=== PATIENT | female | born 1995 | race Caucasian/White ===

== ENCOUNTER 2024-09-09 13:42 | Inpatient (IN) | payer OTHER ==
[~2024-09-09] VITALS: Ht 177.8 cm; Wt 89.0 kg
[2024-09-10 12:29] VITALS: BP 139/108
[2024-09-10 12:48] VITALS: BP 139/108
[2024-09-10] MEDS ORDERED: Aluminum Hydroxide 320MG/5ML 473 ML PO PRN (13:15)
[2024-09-10] MEDS ORDERED: Ondansetron 4 MG SoluTab MM PRN (13:15)
[2024-09-10] MEDS ORDERED: Polyethylene Glycol 3350 17 gm PO PRN (13:15)
[2024-09-10 13:41] VITALS: BP 131/102
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
[2024-09-10] MEDS ORDERED: ZYRTEC10 M2 PO (16:08)
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
[2024-09-10 19:09] VITALS: BP 132/96
--- NOTE | 2024-09-11 05:15 | NUR ---
SHIFT SUMMARY Pt is A&O, cooperative, eye contact is good. Pt s mood is not great, affect is sad and depressed. Pt denies SI, HI, and hallucinations. Pt also denies current pain. Pt was tearful during the assessment. She said that this was a very long day and this will be the longest amount of time that she will be away from her daughter. She add, but I m where I need to be. after assessment relocated to the [facility] and read a book. PT has no scheduled HS meds, but requested PRN trazodone, melatonin, and olanzapine. Staff continues to monitor q15m for safety and wellness.
[2024-09-11 07:32] LABS: CHOL/HDL RATIO 2.6; Cholesterol 173 mg/dL (50-200); HDL Cholesterol 67 mg/dL (>39); LDL/HDL RATIO 1.2; Low Density Lipoprotein Chol 83 mg/dL (0-110); Triglycerides 117 mg/dL (30-140); Very Low Density Lipoprot Chol 23 mg/dL (6-28)
[2024-09-11 08:52] VITALS: BP 134/97
[2024-09-11] MEDS ORDERED: Multivitamins 1 Tab PO SCH (09:00)
--- NOTE | 2024-09-11 12:50 | NUR ---
shift summary NO ACUTE EVENTS. DENIES SI, HI, AVTH. HAS BEEN SLEEPING/RESTING QUIETLY. IN W/ DR NEGRO AT THIS TIME. TRANSFER OF CARE TO RACHEL FIGUEROA.
--- NOTE | 2024-09-11 16:45 | NUR ---
DAY SHIFT SUMMARY: THIS CHIEF CONTROLLER TOWER ASSUMED PATIENT CARE AT 1245. PATIENT DENIES HAVING THOUGHTS OF HARMING AND KILLING SELF. SHE DENIES ALL HALLUCINATIONS. SHE IS ALERT AND ORIENTATED. AFFECT IS CONGRUENT TO HER STATED MOOD OF "ALRIGHT, BETTER". PATIENT APPEARS GROOMED AND IS APPRORIATELY DRESSED. SHE HAS BEEN PARTICIPATING IN GROUPS TODAY. A MEDICATION CHANGE IS ON THE APR FOR TONIGHT- ADDITION OF REMERON. PATIENT REPORTS THAT SHE FEELS BETTER AFTER TALKING TO THE DOCTOR AND BEING ABLE TO RELEASE HER PENT UP FEELINGS. PATIENT IS SITTING IN THE OUTDOOR SPACE AT THIS TIME READING AND HAS NO CONCERNS.
[2024-09-11 19:24] VITALS: BP 118/85
--- NOTE | 2024-09-12 05:51 | NUR ---
SHIFT SUMMARY Pt is A&O, cooperative, eye contact is good. Pt s mood is pretty good, affect is constricted. Pt denies SI, HI, and hallucinations. Pt also denies current pain or other medical issues. Pt discussed how for the past several weeks she has been trying to get help and requesting voluntary hold but not getting any significant help because she did not have a plan for suicide. Pt decided this time she would have a plan and obtained the gun from a friend. Pt said that she essentially asked to be put on a 14-day diversion. Pt stated that her mother is trying to find her safe housing, but otherwise is fine to stay in her local women s care home as her daughter will be staying with her father until pt becomes more self-sufficient. 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 Pt was active on the milieu during the evening, reading a book in the common areas. She retired to her room at about 2200 and remained there for the rest of the shift. Staff continues to monitor q15m for safety and wellness.
[2024-09-12 08:46] VITALS: BP 126/94
--- NOTE | 2024-09-12 18:03 | NUR ---
SHIFT SUMMARY NO ACUTE EVENTS TODAY. START OF SHIFT PT STATED SHE FELT "SAD/GRUMP" D/T POOR SLEEP. MOOD APPEARS TO HAVE IMPROVED PT HAS BEEN INTERACTING MORE W/ STAFF/PEERS THAN PREVIOUS SHIFT FOR THIS RN. PT HAS BEEN READING BOOK, PLAYING SCRABBLE, AND WATCHING TV. DENIES SI, SANJUANA, AVGIAN.
[2024-09-12 19:55] VITALS: BP 142/102
--- NOTE | 2024-09-13 06:01 | NUR ---
SHIFT SUMMARY Pt is A&O, cooperative, eye contact is good. Pt s mood is more social, alert and oriented, affect is constricted. Pt denies SI, HI, and hallucinations. Pt also denies current pain or other medical issues. Pt stated that she slept poorly last night, but was afraid to get out of bed because that would make her even more awake. Pt said that she was feeling grumpy this morning, probably due to her quality of sleep, but that this afternoon has been great. Pt was active on the milieu during the evening, pleasantly interacting with peers and staff and reading her book. PRN melatonin and trazodone were given for sleep at HS and PRN hydroxyzine given for anxiety 5/10w. Staff continues to monitor q15m for safety and wellness.
[2024-09-13 08:56] VITALS: BP 128/89
--- NOTE | 2024-09-13 14:16 | NUR ---
SHIFT ASSESSMENT: PT ALERT AND ORIENTED X4. SHE DENIE SI, HI, AVH, ANXIETY AND PAIN. SHE REPORTED HER MOOD , "I'M FEELING GOOD." HER AFFECT WAS EUTHYMIC. PT HAS ATTENDED GROUPS TODAY. SHE IS PLEASANT AND COOPERATIVE WITH CARE.
[2024-09-13 19:12] VITALS: BP 128/86
--- NOTE | 2024-09-14 05:51 | NUR ---
SHIFT SUMMARY Pt is A&O, cooperative, eye contact is good. Pt s mood is pretty good, affect is constricted. Pt denies SI, HI, and hallucinations. Pt also denies current pain or other medical issues. Pt stated that she was feeling rough this morning, but took PRN hydroxyzine and olanzapine and by afternoon was feeling much better. Pt was active on the milieu during the evening, pleasantly interacting with peers and staff and reading her book. Pt took her evening meds at 2000, including her new HS dose of trazodone 150mg and PRN olanzapine for agitation; she appeared to sleep most of the night without interuptions. Staff continues to monitor q15m for safety and wellness.
[2024-09-14 07:51] VITALS: BP 128/92
--- NOTE | 2024-09-14 18:35 | NUR ---
SHIFT SUMMARY PT A/O X4; PLEASANT AND COOPERATIVE WITH CARE. SHE DENIES SI, HI, AVTH. PT REPORTS HAVING "WEIRD DREAMS" THAT ARE SIMILAR TO NIGHT TERRORS. PT WOKE UP WITH ANXIETY DUE TO HER DREAMS AND REQUESTED PRN. CONFIRMED THAT PT IS REMOVING HER NICOTINE PATCHES IN THE EVENING. NO OTHER COMPLAINTS THIS SHIFT. SHE ATTENDED ALL MEALS AND GROUPS.
[2024-09-14 20:47] VITALS: BP 126/82
--- NOTE | 2024-09-15 04:20 | NUR ---
SHIFT SUMMARY PT IN HER ROOM, READING AT START OF SHIFT. SHE DENIES ANY SI, HI, THOUGHTS OF SELF HARM OR AVTH. SHE IS PLEASANT AND COOPERATIVE. REPORTS HER MOOD "GOOD". SHE WATCHED TV, HAD EVENING SNACK, AND WAS COMPLIANT WITH MEDS. SHE RECEIVED PRN MELATONIN, AND ZYPREXA (MASS SCORE OF 4). SHE WENT TO BED AFTER SNACK AND HAS REMAINED THERE THROUGHOUT THE NIGHT. Q15 MINUTE CHECKS TO CONTINUE PER PT SAFETY.
[2024-09-15 07:48] VITALS: BP 115/85
--- NOTE | 2024-09-15 18:55 | NUR ---
SHIFT SUMMARY NO ACUTE EVENTS TODAY. PT DENIES SI, HI, AVTH. ENDORSED GETTING A GOOD NIGHTS SLEEP. WENT TO GROUPS, ATE MEALS, AND HAS BEEN READING OUTSIDE/WATCHING TV W/ PEERS/STAFF.
[2024-09-15 20:35] VITALS: BP 133/100
--- NOTE | 2024-09-16 04:14 | NUR ---
SHIFT SUMMARY PT IN HER ROOM READING A BOOK AT START OF SHIFT. SHE DENIES ANY SI, HI, THOUGHTS OF SELF HARM OR AVTH. SHE REPORTS THAT SHE HAS BEEN ANXIOUS ON AND OFF THROUGHOUT THE DAY. SHE HAD EVENING SNACK, WAS COMPLAINT WITH MEDS AND RECEIVED PRN MELATONIN AND ZYPREXA. Q15 CHECKS TO CONTINUE PER PT SAFETY.
[2024-09-16 08:58] VITALS: BP 129/86
--- NOTE | 2024-09-16 17:00 | NUR ---
SHIFT SUMMARY NO ACUTE EVENTS TODAY. DENIES SI, HI, AVTH. PLEASANT AND COOPERATIVE. ENDORSES SLEEPING "GOOD" LAST NIGHT. HAS BEEN INTERACTING W/ PEERS, GOING TO GROUPS, AND READING.
[2024-09-16 20:02] VITALS: BP 133/96
--- NOTE | 2024-09-17 04:56 | NUR ---
SHIFT SUMMARY: PATIENT WAS IN THE DINING ROOM FINISHING DINNER AT THE BEGINNING OF THE SHIFT. SHE THEN WENT OUT TO THE PATIO, WHERE SHE WAS READING A BOOK. SHE WAS PLEASANT AND COOPERATIVE WITH CARES, AND WAS ABLE TO ANSWER SHAPING MACHINE OPERATOR QUESTIONS IN A LOGICAL AND LINEAR MANNER. SHE WAS FORWARD THINKING AND FUTURE ORIENTED, STATING THAT "MY MOM HAS APPLIED FOR AN APARTMENT FOR ME AND HER AND MY DAUGHTER" AND "MY DAUGHTER'S DAD IS HELPING ME BY SELLING SOME OF MY TOYS AND HE'S GOING TO MAKE SURE I HAVE A CAR". SHE EXPRESSED EXCITEMENT ABOUT WHAT THE FUTURE HOLDS FOR HER AND FOR HER DAUGHTER, TALKING ABOUT DECORATING THE APARTMENT AND HER LOVE OF BOOKS, PARTICULARLY OLD EDITIONS AND HARDBACK BOOKS. SHE DENIED SUICIDAL IDEATION, THOUGHTS OF SELF HARMING AND A/V/T HALLUCINATIONS. SHE WAS COMPLIANT WITH EVENING MEDICATIONS, AND PARTICIPATED IN SNACK AND WRAP UP GROUP AT 2030. SHE THEN WENT TO HER ROOM AND WAS READING FOR A TIME, THEN WAS NOTED TO BE RESTING QUIETLY WITH EYES CLOSED AND RESPIRATIONS CONFIRMED FOR THE REMAINDER OF THE SHIFT. CONTINUING TO MONITOR FOR SAFETY WITH Q15 MINUTE CHECKS.
[2024-09-17 07:41] VITALS: BP 136/90
--- NOTE | 2024-09-17 12:48 | NUR ---
PT TO NURSES STATION AND REQUESTED A ZYPREXA. STATES THAT SHE IS FEELING ANXIOUS AND "IT IS VERY OVER STIMULATING IN THE GROUP RIGHT NOW". PT MEDICATED WITH PRN PER EMAR.
--- NOTE | 2024-09-17 17:00 | NUR ---
SHIFT SUMMARY PT HAS BEEN UP AND ENGAGED ALL SHIFT TODAY, ATTENDING GROUPS, MEALS AND UTILIZING TV/PATIO TIME. SHE IS VERY POLITE AND COOPERATIVE AND HAS RECEIVED Q15 MIN VISUAL SAFETY CHECKS
[2024-09-17 19:33] VITALS: BP 128/85
--- NOTE | 2024-09-17 20:46 | NUR ---
MEDICATION ADMINISTRATION: PATIENT REQUESTED PRN MELATONIN WITH HER SCHEDULED REMERON AND TRAZODONE AT BEDTIME MEDICATION ADMINISTRATION. "THIS COMBINATION HAS BEEN WORKING FOR ME," SHE STATED. SHE STATED THAT IT ALLOWS HER SLEEP WITHOUT FEELING OVERLY SEDATED, AND THAT SHE DOES NOT FEEL TOO SLEEPY IN THE MORNING. CONTINUING TO MONITOR FOR SAFETY AND EFFECTIVENESS.
--- NOTE | 2024-09-18 04:28 | NUR ---
SHIFT SUMMARY: PATIENT WAS IN THE DINING AREA FINISHING DINNER AT THE BEGINNING OF THE SHIFT. SHE THEN CAME OUT TO THE DAYROOM TO WATCH A MOVIE WITH STAFF AND PEERS. SHE WAS ABLE TO ANSWER OUTSIDE PHYSICAL DAMAGE APPRAISER QUESTIONS IN A LOGICAL AND LINEAR MANNER. SHE DENIED SUICIDAL IDEATION, THOUGHTS OF SELF HARMING AND A/V/T HALLUCINATIONS. SHE STATED THAT SHE HAD A "GREAT DAY" AND "I LOVED THE GRIEF GROUP. I LEARNED A LOT". SHE WANTED HER SCHEDULED REMERON AND TRAZODONE AT BEDTIME, AND REQUESTED MELATONIN WELL. SHE STATED, "I KNOW I WILL GET GOOD SLEEP WITH THOSE MEDICATIONS". SHE PARTICIPATED IN SNACK AND WRAP UP GROUP AT 2030 IN THE DINING AREA. SHE WAS COMPLIANT WITH EVENING MEDICATIONS. SHE THEN WENT BACK TO THE DAY ROOM TO FINISH WATCHING THE MOVIE. AT 2200, SHE WENT TO HER ROOM AND WENT TO BED, WHERE SHE WAS NOTED TO BE RESTING QUIETLY WITH EYES CLOSED AND RESPIRATIONS CONFIRMED FOR THE REMAINDER OF THE SHIFT. CONTINUING TO MONITOR FOR SAFETY WITH Q15 MINUTE CHECKS.
[2024-09-18 07:07] VITALS: BP 124/86
--- NOTE | 2024-09-18 14:50 | NUR ---
PT COMES TO NURSING STATION REPORTING ANXIETY. SHE IS UNABLE TO ELABORATE. STATES SHE HAS TRIED DEEP BREATHING AND RELAXATION TECHNIQUES IN ROOM WITHOUT GOOD RESULTS. 50MG VISTRIL GRADES 9 12 TUTOR FOR MASS SCORE OF 4
--- NOTE | 2024-09-18 17:29 | NUR ---
SHIFT SUMMARY PT WAS UP AT THE START OF THIS SHIFT, SHE HAS HAD A GREAT SHIFT. SHE HAS DENIED SI/HI/AVH, BEEN FULLY ENGAGED WITH THE MILIEU, ATTENDING ALL MEALS, SNACKS AND GROUP TIME THAT WAS PRESENTED BY ONE OF OUR MHA'S. SPENT TIME ON THE PATIO READING, VERY PLEASANT. SHE HAS RECEIVED Q15 MIN VISUAL SAFETY CHECKS
[2024-09-18 19:37] VITALS: BP 122/86
--- NOTE | 2024-09-18 20:43 | NUR ---
MEDICATION ADMINISTRATION: PATIENT WAS GIVEN MEDICATION EDUCATION REGARDING HER SCHEDULED MEDICATIONS WELL HER NEEDED. SHE CONTINUES TO REQUEST SCHEDULED REMERON AND TRAZODONE, WELL PRN MELATONIN. SHE STATES, "THIS HAS BEEN THE BEST FORMULA FOR ME". SHE DENIED MORNING GROGGINESS USING THESE MEDICATIONS. CONTINUING TO MONITOR FOR EFFECTIVENESS AND SAFETY.
--- NOTE | 2024-09-19 04:46 | NUR ---
SHIFT SUMMARY: PATIENT WAS IN THE DINING ROOM FINISHING DINNER AT THE BEGINNING OF THE SHIFT. SHE THEN CAME OUT AND WENT TO THE DAYROOM, WHERE SHE WAS WATCHING TELEVISION WITH STAFF AND PEERS, AND READING HER BOOK NEAR THE OTHERS. SHE WAS ABLE TO PARTICIPATE IN COMMUNITY HEALTH EDUCATION COORDINATOR, AND DENIED SUICIDAL IDEATION, THOUGHTS OF SELF HARMING AND A/V/T HALLUCINATIONS. SHE STATED, "I WANT THE SAME MEDICATIONS I HAVE BEEN TAKING", WHICH ARE HER SCHEDULED REMERON AND TRAZODONE, AND PRN MELATONIN. SHE PARTICIPATED IN SNACK AND WRAP UP GROUP, AND WAS MEDICATION COMPLIANT. SHE THEN COMPLETED WATCHING TELEVISION UNTIL THE DAY ROOM CLOSED AT 2200. SHE THEN WENT TO HER ROOM, WHERE SHE WAS NOTED TO BE IN BED RESTING WITH EYES CLOSED AND RESPIRAITONS CONFIRMED FOR THE REMAINDER OF THE SHIFT. CONTINUING TO MONITOR FOR SAFETY WITH Q15 MINUTE CHECKS.
[2024-09-19 06:55] VITALS: BP 117/77
--- NOTE | 2024-09-19 16:12 | NUR ---
SHIFT SUMMARY PT WAS UP AT START OF THIS SHIFT, SHOWERED ALMOST IMMEDIATLEY AND ASKED FOR MORNING MEDS. SHE DID ASK FOR A VISTIRIL APPROX MID MORNING, STATING FEELING ANXIOUS. MASS SCORE OF 3. SHE PARTICIPATED IN THE MILIEU ALL SHIFT ATTENDING ALL MEALS/SNACKS, SPENT A LOT OF TIME READING, STARTING A NEW BOOK TODAY. SHE DENIES SI/HI/AVH, HAS BEEN COOPERATIVE AND PLEASANT THIS SHIFT. SHE HAS CONTINUED TO RECEIVE Q15 MIN VISUAL SAFETY CHECKS THROUGHOUT THIS SHIFT.
[2024-09-19 19:40] VITALS: BP 119/80
--- NOTE | 2024-09-20 00:41 | NUR ---
MEDICATION ADMINISTRATION: PATIENT REQUESTED AND WAS GIVEN MELATONIN WITH HER EVENING MEDICATIONS. SHE STATED THAT "IT HELPS ME SLEEP" AND SHE HAS BEEN TAKING IT EACH EVENING WITH GOOD EFFECT. CONTINUING TO MONITOR FOR EFFECTIVENESS AND SAFETY.
--- NOTE | 2024-09-20 04:20 | NUR ---
SHIFT SUMMARY: PATIENT WAS FINISHING DINNER AT THE BEGINNING OF THE SHIFT. SHE THEN WENT TO THE DAYROOM AND WAS READING A BOOK. SHE STOPPED TO TALK AND WAS EXCITED ABOUT READING SO MUCH WHILE HERE. "I'M GLAD I GOT BACK INTO READING". SHE STATED THAT HER DAY "WENT REALLY GREAT" AND "I GOT SOME GOOD NEWS". SHE WAS ABLE TO ANSWER LAW FIRM PARTNER QUESTIONS IN A LOGICAL AND LINEAR MANNER. SHE DENIED SUICIDAL IDEATION, THOUGHTS OF SELF HARMING AND A/V/T HALLUCINATIONS. SHE REQUESTED MELATONIN PRN WITH HER SCHEDULED EVENING MEDICATIONS. SHE PARTICIPATED IN SNACK AND WRAP UP GROUP, AND WROTE POSITIVE MESSAGES ABOUT HER DAY ON HER WRAP UP GROUP PAPER. SHE THEN WENT TO BED TO READ, AND WAS LATER NOTED TO BE RESTING QUIETLY WITH EYES CLOSED AND RESPIRATIONS CONFIRMED FOR THE REMAINDER OF THE SHIFT. CONTINUING TO MONITOR FOR SAFETY WITH Q15 MINUTE CHECKS.
[2024-09-20 08:41] VITALS: BP 123/87
--- NOTE | 2024-09-20 17:44 | NUR ---
SHIFT SUMMARY PT HAS BEEN UP AND INVOLVED IN THE MILIEU ALL SHIFT, SHE ATTENDED EACH MEAL/SNACK TIME AND ENGAGED HERSELF IN THE GROUP ACTIVITIES. SHE HAS SPENT ALL OF HER OFF TIME ON THE PATIO READING HER BOOK. PLAN IS FOR PT TO DC HOME ON FRIDAY. SHE HAS DENIED SI/HI/AVH AND HAS RECEIVED Q15 MIN VISUAL SAFETY CHECKS.
[2024-09-20 20:57] VITALS: BP 117/82
--- NOTE | 2024-09-21 04:35 | NUR ---
SHIFT SUMMARY PT IN HER ROOM READING AT START OF SHIFT. SHE DENIES ANY SI, HI, THOUGHTS OF SELF HARM OR AVTH. SHE IS PLEASANT AND COOPERATIVE WITH CARE. NOSE RING TO RIGHT NARE NOTED TO BE IN PLACE AND INTACT. PT HAD EVENING SNACK. SHE REQUESTED AND RECEIVED MELATONIN TO ASSIST WITH SLEEPING AND WAS COMPLIANT WITH SCHEDULED MEDS. AFTER SNACK SHE RETURNED TO HER ROOM TO READ AND WENT TO BED. Q15 MINUTE CHECKS TO CONTINUE PER PT SAFETY/UNIT PROTOCOL.
[2024-09-21 08:49] VITALS: BP 113/79
--- NOTE | 2024-09-21 17:29 | NUR ---
SHIFT SUMMARY PT DENIES SI/HI/AVH THIS SHIFT. SHE STATE SHE IS EXCITED AND SLIGTHLY ANXIOUS TO D/C HOME TOMORROW. SHE DENIES NEEDING ANY PRN'S FOR THIS ANXIETY. SHE IS COMPLIANT WITH ALL MEDICATIONS AND ATTENDS GROUPS AND MEALS. SHE HAS HAD NO ACUTE EVENTS THIS SHIFT AND HAS BEEN PLEASANTLY INTERACTIVE IN THE MILIEU. ALL SAFETY CHECKS COMPLETED.
[2024-09-21 20:51] VITALS: BP 122/90
[2024-09-21] MEDS ORDERED: Mirtazapine 30 MG SoluTab PO SCH (21:00)
--- NOTE | 2024-09-22 04:56 | NUR ---
SHIFT SUMMARY PT PRESENT IN MILIEU AT START OF SHIFT. INTERACTS WELL WITH STAFF AND PEERS. SHE DENIES ANY SI, HI, THOUGHTS OF SELF HARM OR AVTH. SHE STATES SHE FEELS READY FOR DISCHARGE AND IS EXCITED. SHE C/O 4/10 LOWER BACK PAIN AND REQUESTED AND RECEIVED IBUPROFEN PER PRN ORDERS, WITH GOOD AFFECT. SHE HAD EVENING SNACK, WAS COMPLIANT WITH SCHEDULED MEDS, PLAYED CARDS WITH PEERS AND WENT TO BED AT APPROXIMATLEY 2200. PT HAS REMAINED IN BED THROUGHOUT THE SHIFT. Q15 MINUTE CHECKS TO CONTINUE PER PT SAFETY.
--- NOTE | 2024-09-22 07:51 | NUR ---
IMPORTANT DISCHARGE INFORMATION PATIENT TO BE DISCHARGED TODAY. SHE HAS A FRIEND WHO IS PICKING HER UP AROND 1:30PM TO DRIVE HER TO HER MOTHER'S HOUSE. MOTHER'S NAME IS STUART . ALL PARTIES VERBALIZE AN UNDERSTANDING. FOLLOW UP CARE WITH [facility] ON 09/23/24 AT 1PM. PHARMACY: [facility] FAX # [phone]
[2024-09-22 08:15] VITALS: BP 134/82
[2024-09-22] MEDS ORDERED: HYDPAM50 PO (09:36)
[2024-09-22] MEDS ORDERED: MELA3 PO (09:37)
[2024-09-22] MEDS ORDERED: MIRT30ST PO (09:37)
[2024-09-22] MEDS ORDERED: MULVITA PO (09:38)
[2024-09-22] MEDS ORDERED: NICO21TP TOP (09:39)
[2024-09-22] MEDS ORDERED: OLAN10 PO (09:40)
[2024-09-22] MEDS ORDERED: TRAZ150T57 PO (09:40)
--- NOTE | 2024-09-22 11:30 | NUR ---
DISCHARGE SUMMARY D/C AND F/U INSTRUCTIONS AND INFORMATION PACKET EXPLAINED TO PT AND ALL QUESTIONS ANSWERED AND FORM SIGNED. PT STATES UNDERSTANDING. BELONGINGS RETURNED TO PT AND PT SIGNED VALUABLES RETURN FORM. SHE WAS GIVEN HER BELONGINGS FROM THE SAFE. PT DRESSED SELF AND ESCORTED OUT OF THE BUILDING BY THIS RN TO MEET HER FRIEND THAT IS TO TRANSPORT HER TO HER DESTINATION. HER RX'S WERE FAXED TO [facility] IN [place] PER PT'S REQUEST.
== END 2024-09-22 11:27 | disposition home or self-care (01) | DRG 885 ==
LOC: BHU 13:42
PROVIDERS: ADMIT Psychiatry & Neurology Psychiatry
DX: F33.2 Major depressive disorder, recurrent severe without psychotic features (principal); R45.851 Suicidal ideations; Z91.018 Allergy to other foods; F12.90 Cannabis use, unspecified, uncomplicated; F10.90 Alcohol use, unspecified, uncomplicated; Z79.899 Other long term (current) drug therapy
CPT/HCPCS: 36415; 80061; 83036; A9270